=== PATIENT | male | born 1995 | race Two or more races ===

== ENCOUNTER 2022-02-07 02:41 | Emergency (ER) | payer MEDICAID ==
[~2022-02-07] VITALS: Ht 172.7 cm; Wt 100.0 kg
[2022-02-07] MEDS ORDERED: TRANEXAMIC ACID 10 ML ONE (02:57)
[2022-02-07] MEDS ORDERED: SODIUM CHLORIDE 0.9% 2,000 ML IV ONE (03:00)
[2022-02-07] MEDS ORDERED: TRANEXAMIC ACID 1,000 MG in SODIUM CHL 0.9% 100 ML IV ONE (03:00)
[2022-02-07 03:05] VITALS: BP 137/70
== END 2022-02-07 03:01 | disposition short-term general hospital (02) ==
LOC: ER 02:43
DX: S01.03XA Puncture wound without foreign body of scalp, initial encounter (principal); S71.002A Unspecified open wound, left hip, initial encounter; S31.102A Unspecified open wound of abdominal wall, epigastric region without penetration into peritoneal cavity, initial encounter; S51.802A Unspecified open wound of left forearm, initial encounter; X99.1XXA Assault by knife, initial encounter; Y93.89 Activity, other specified; Y92.89 Other specified places as the place of occurrence of the external cause; Y99.8 Other external cause status
CPT/HCPCS: 71045; 96360; 99285; J7030

== ENCOUNTER 2024-02-11 16:34 | Inpatient (IN) | payer MEDICAID ==
[~2024-02-11] VITALS: Ht 172.7 cm; Wt 59.8 kg
[2024-02-11] MEDS: ACETAMINOPHEN 325 MG TAB PO ONE (17:02)
[2024-02-11] MEDS: IBUPROFEN 800 MG TAB PO ONE (17:04)
[2024-02-11 17:56] LABS: Hematocrit 32.7 % (41.0-53.0); Hemoglobin 11.1 g/dL (13.5-17.5); Mean Corpuscular Hemoglobin 30.1 pg (28.0-32.0); Mean Corpuscular Volume 88.3 fL (80.0-100.0); Platelet Count (auto) 268 10^3/uL (140-450); Red Cell Distribution Width 15.3 % (11.8-14.3); White Blood Cell 4.4 10^3/uL (4.4-10.8)
[2024-02-11 18:13] LABS: Alanine Aminotransferase 107 U/L (7-40); Albumin 2.8 g/dL (3.2-4.8); Alkaline Phosphatase 106 U/L (46-116); Anion Gap 5 (5-15); Aspartate Aminotransferase 121 U/L (13-40); BUN/Creatinine Ratio 8.5 (10.0-20.0); Bilirubin, Total 0.3 mg/dL (0.2-1.0); Blood Urea Nitrogen 6 mg/dL (9-23); Calcium 7.8 mg/dL (8.7-10.4); Carbon Dioxide 31 mmol/L (20-31); Chloride 99 mmol/L (98-107); Glucose 91 mg/dL (74-106); Magnesium 1.1 mg/dL (1.6-2.6); Phosphorus 2.7 mg/dL (2.4-5.1); Potassium 3.6 mmol/L (3.5-5.1); Sodium 135 mmol/L (136-145)
[2024-02-11 18:14] LABS: Total Protein 4.8 g/dL (5.7-8.2)
[2024-02-11 18:17] LABS: Lactic Acid w/Reflex 2.1 mmol/L (0.4-2.0)
[2024-02-11 18:24] LABS: Band Neutrophils % (manual) 0; Basophils % (manual) 0 (0.0-2.0); Eosinophils % (manual) 0 (0-7); Metamyelocytes % 0; Myelocytes % 0; Promyelocytes % 0
[2024-02-11 18:25] LABS: Blast Cells 0; Reactive Lymphocytes 0
[2024-02-11 18:38] LABS: Lymphocytes % (manual) 17 (10.0-50.0); Monocytes % (manual) 13 (0-12)
[2024-02-11 18:39] LABS: Platelet Estimate Adequate
[2024-02-12] MEDS: MAGNESIUM SULFATE 1GM/100ML 100 ML IV ONE ×2 (00:40→09:55)
[2024-02-12] MEDS: MAGNESIUM SULFATE 1GM/100ML 100 ML IV SCH (01:03)
[2024-02-12] MEDS: SODIUM CHLORIDE 0.9% 2,000 ML IV ONE (01:03)
[2024-02-12 01:24] VITALS: PULSE 100; RESP 18; O2SAT 100
[2024-02-12] MEDS: SODIUM PHOSPHATES 20 MEQ in SODIUM CHL 0.9% 100 ML IV ONE (01:45)
[2024-02-12] MEDS: VANCOMYCIN HCL 125 MG CAP PO ONE (02:01)
[2024-02-12] MEDS: metroNIDAZOLE 500MG/100ML 100 ML IV ONE (03:35)
[2024-02-12] MEDS: SODIUM CHLORIDE 0.9% 500 ML IV ONE ×3 (03:35→22:31)
[2024-02-12] MEDS: VANCOMYCIN HCL 125 MG CAP PO SCH (05:33)
[2024-02-12 08:08] LABS: Anion Gap 3 (5-15); Carbon Dioxide 29 mmol/L (20-31); Chloride 105 mmol/L (98-107); Potassium 3.4 mmol/L (3.5-5.1); Sodium 137 mmol/L (136-145)
[2024-02-12 08:10] LABS: Calcium 7.2 mg/dL (8.7-10.4)
[2024-02-12 08:14] LABS: Glucose 82 mg/dL (74-106)
[2024-02-12 08:16] LABS: BUN/Creatinine Ratio 7.8 (10.0-20.0); Blood Urea Nitrogen < 5 mg/dL (9-23)
[2024-02-12 08:24] LABS: Hematocrit 28.7 % (41.0-53.0); Hemoglobin 9.4 g/dL (13.5-17.5); Mean Corpuscular Hemoglobin 30.6 pg (28.0-32.0); Mean Corpuscular Hgb Conc. 32.7 g/dL (32.0-36.0); Mean Corpuscular Volume 93.7 fL (80.0-100.0); Platelet Count (auto) 179 10^3/uL (140-450); Red Blood Cells 3.06 10^6/uL (4.5-5.90); Red Cell Distribution Width 16.6 % (11.8-14.3); White Blood Cell 2.8 10^3/uL (4.4-10.8)
[2024-02-12 08:27] LABS: Band Neutrophils % (manual) 0; Basophils % (manual) 0 (0.0-2.0); Eosinophils % (manual) 0 (0-7); Metamyelocytes % 0; Myelocytes % 0; Promyelocytes % 0; Reactive Lymphocytes 0
[2024-02-12 09:14] VITALS: RESP 17; O2SAT 97
[2024-02-12] MEDS: POTASSIUM EFFERVESENT TAB 25 MEQ PO ONE ×2 (09:14→14:00)
[2024-02-12 11:26] LABS: Blast Cells 2; Lymphocytes % (manual) 14 (10.0-50.0); Monocytes % (manual) 14 (0-12)
[2024-02-12 11:27] LABS: Platelet Estimate Adequate
[2024-02-12] MEDS: GASTROGRAFIN 120 ML SOL ONE (16:58)
[2024-02-12] MEDS: metroNIDAZOLE 500MG/100ML 100 ML IV SCH (17:07)
[2024-02-12 23:12] VITALS: PULSE 108; RESP 18; O2SAT 97
[2024-02-12 23:15] VITALS: BP 90/55; PULSE 108; RESP 18; TEMP 99; O2SAT 97
[2024-02-13] MEDS ORDERED: BICT1TAB PO (00:03)
[2024-02-13 01:00] VITALS: BP 91/56; PULSE 100; RESP 18; TEMP 98.3; O2SAT 99
[2024-02-13] MEDS: ONDANSETRON HCL 4 MG/2 ML VIAL IV PRN (01:42)
[2024-02-13] MEDS ORDERED: IBUP-1454 PO (03:03)
[2024-02-13] MEDS ORDERED: ACETAMINOPHEN 325 MG TAB PO PRN (04:30)
[2024-02-13] MEDS ORDERED: MORPHINE SULFATE INJ 2 MG/ml SYRG IV PRN (04:30)
[2024-02-13] MEDS: HYDROcodone-ACET 5/325MG TAB PO PRN (04:58)
[2024-02-13 05:00] VITALS: BP 92/55; PULSE 90; RESP 18; TEMP 98.9; O2SAT 99
[2024-02-13 09:00] VITALS: BP 90/52; PULSE 76; RESP 16; TEMP 98.1; O2SAT 98
[2024-02-13 09:07] LABS: Basos 1 % (Not Estab.); Eos 0 % (Not Estab.); Hemoglobin 11.3 g/dL (13.0-17.7); Immature Granulocytes (Abs) 0 x10E3/uL (0.0-0.1); Lymphs 13 % (Not Estab.); Lymphs (Absolute) 0.6 x10E3/uL (0.7-3.1); MCH 30.4 pg (26.6-33.0); MCHC 33.2 g/dL (31.5-35.7); MCV 91 fL (79-97); Monocytes 10 % (Not Estab.); Monocytes (Absolute) 0.4 x10E3/uL (0.1-0.9); Neutrophils 75 % (Not Estab.); Neutrophils (Absolute) 3.3 x10E3/uL (1.4-7.0); Platelets 280 x10E3/uL (150-450); RBC 3.72 x10E6/uL (4.14-5.80); WBC 4.3 x10E3/uL (3.4-10.8)
[2024-02-13 09:18] LABS: Basophils # (auto) 0 10 ^3/uL (0-0.2); Basophils % (auto) 0.8 % (0.0-2.0); Eosinophils # (auto) 0 10 ^3/uL (0-0.8); Eosinophils % (auto) 0.6 % (0.0-7.0); Hematocrit 35.7 % (41.0-53.0); Hemoglobin 12.6 g/dL (13.5-17.5); Lymphocytes % (auto) 28.2 % (10.0-50.0); Mean Corpuscular Hemoglobin 31.2 pg (28.0-32.0); Mean Corpuscular Hgb Conc. 35.3 g/dL (32.0-36.0); Mean Corpuscular Volume 88.3 fL (80.0-100.0); Monocytes # (auto) 0.4 10 ^3/uL (0-1.3); Monocytes % (auto) 10.4 % (0.0-12.0); Neutrophils # (auto) 2.1 10 ^3/uL (1.6-8.6); Nucleated Red Blood Cells % 0.4 %; Platelet Count (auto) 253 10^3/uL (140-450); Red Blood Cells 4.04 10^6/uL (4.5-5.90); Red Cell Distribution Width 15.6 % (11.8-14.3); White Blood Cell 3.5 10^3/uL (4.4-10.8)
[2024-02-13 09:34] LABS: Alanine Aminotransferase 160 U/L (7-40); Alkaline Phosphatase 146 U/L (46-116); Anion Gap 4 (5-15); Aspartate Aminotransferase 132 U/L (13-40); Calcium 8.1 mg/dL (8.7-10.4); Carbon Dioxide 31 mmol/L (20-31); Chloride 102 mmol/L (98-107); Glucose 96 mg/dL (74-106); Magnesium 1.5 mg/dL (1.6-2.6); Potassium 3.2 mmol/L (3.5-5.1); Sodium 137 mmol/L (136-145)
[2024-02-13 09:35] LABS: Bilirubin, Total 0.4 mg/dL (0.2-1.0); Total Protein 5.5 g/dL (5.7-8.2)
[2024-02-13 09:37] LABS: BUN/Creatinine Ratio 6.8 (10.0-20.0); Blood Urea Nitrogen < 5 mg/dL (9-23)
[2024-02-13 10:07] LABS: % CD 8 Pos Lymph 58.6 % (12.0-35.5); Absolute CD 4 Helper 90 /uL (359-1519); CD4/CD8 Ratio 0.26 (0.92-3.72)
[2024-02-13] MEDS ORDERED: POTASSIUM EFFERVESENT TAB 25 MEQ PO ONE ×2 (11:15→17:00)
[2024-02-13] MEDS ORDERED: MAGNESIUM SULFATE 1GM/100ML 100 ML IV ONE (11:15)
[2024-02-14 08:06] LABS: CMV IgG Antibody >10.00 U/mL (0.00-0.59); CMV IgM Antibody <30.0 AU/mL (0.0-29.9)
[2024-02-15 04:06] LABS: QuantiFERON-TB Gold Plus Negative (Negative)
[2024-02-15 09:24] LABS: Hepatitis B Surface Antigen Negative (Negative)
[2024-02-15 09:45] LABS: Hepatitis A Ab IgM Negative
[2024-02-15 09:46] LABS: Hepatitis B Core IgM Negative
[2024-02-15 09:47] LABS: Hepatitis C Antibody Negative (Negative)
[2024-02-20 14:40] LABS: HIV-1 Antibody Reactive (Non Reactive); HIV-2 Ab Non Reactive (Non Reactive); NOTE: HIV-1 Positive (.)
== END 2024-02-13 11:45 | disposition left against medical advice (07) | DRG 892 ==
LOC: ER 16:34 → WEST WING 02-12 00:20 → OVERFLOW 02-12 00:20 → WEST WING 02-12 23:00
PROVIDERS: ADMIT Internal Medicine; ATTEND Internal Medicine
DX: A41.89 Other specified sepsis (principal); B20 Human immunodeficiency virus [HIV] disease; D64.9 Anemia, unspecified; E83.42 Hypomagnesemia; E87.6 Hypokalemia; Z91.148 Patient's other noncompliance with medication regimen for other reason; A08.39 Other viral enteritis; E44.1 Mild protein-calorie malnutrition
CPT/HCPCS: 36415; 70450; 71045; 74176; 74250; 76705; 80048; 80053; 80074; 82270; 83605; 83735; 84100; 85007; 85025; 85027; 85048; 86360; 86644; 86645; 86701; 86703; 87040; 87045; 87081; 87177; 87389; 87427; 87536; 99291; G0378; J2405; J3490